=== PATIENT | female | born 1970 | race Caucasian/White ===

== ENCOUNTER 2023-04-29 15:39 | Emergency (ER) | payer MEDICAID ==
[~2023-04-29] VITALS: Ht 147.3 cm; Wt 45.4 kg
[2023-04-29] MEDS ORDERED: SULFAMETH/TRIMETH 800/160 MG TABLET PO ONE (17:15)
[2023-04-29] MEDS ORDERED: SULFAMETH/TRIMETH 800/160 MG TABLET ONE (17:26)
[2023-04-29] MEDS ORDERED: SULF1TAB48 PO (17:28)
[2023-04-29 17:43] VITALS: BP 106/65; TEMP 98.6; O2SAT 100
== END 2023-04-29 17:44 | disposition home or self-care (01) ==
LOC: ER 15:39
DX: S60.011A Contusion of right thumb without damage to nail, initial encounter (principal); W19.XXXA Unspecified fall, initial encounter; Y93.89 Activity, other specified; Y92.89 Other specified places as the place of occurrence of the external cause; Y99.8 Other external cause status
CPT/HCPCS: A4663